=== PATIENT | female | born 1980 | race Caucasian/White ===

== ENCOUNTER → 2025-04-09 13:51 | Outpatient (CLI) | payer OTHER, SELFPAY ==
[2025-04-09 15:46] LABS: Lithium 0.5 mmol/L (0.6-1.2)
== END ==
LOC: LAB 13:54
PROVIDERS: PCP Family Medicine; Referring Provider Family Medicine; Visit Provider Family Medicine
DX: Z79.899 Other long term (current) drug therapy (principal); F31.81 Bipolar II disorder; F43.10 Post-traumatic stress disorder, unspecified; Z86.39 Personal history of other endocrine, nutritional and metabolic disease
CPT/HCPCS: 36415; 80178; 84443

== ENCOUNTER → 2025-04-10 15:11 | Outpatient (CLI) | payer OTHER, SELFPAY ==
--- NOTE | 2025-04-10 15:13 | DI.US.S_ITS ---
PROCEDURE: US ABDOMEN LIMITED INDICATIONS: ENLARGED LIVER ON CT. HISTORY OF CHRON'S. ABDOMEN PAIN. TECHNIQUE: Real-time scanning was performed of the abdominal and retroperitoneal organs, with image documentation. COMPARISON: None. FINDINGS: Liver: The liver measures 18.4 cm in vertical diameter. Diffusely increased echogenicity, with slightly heterogeneous echotexture. No focal lesions seen. Gallbladder: Status post cholecystectomy. Biliary ducts: Intrahepatic bile ducts are non-dilated. Extrahepatic bile duct caliber measures 6 mm. Normal is 6-7 mm or less in diameter, or 10 mm or less post-cholecystectomy. Pancreas: Visualized portions of the pancreas are sonographically normal. Miscellaneous: No free abdominal fluid. IMPRESSION: 1. Hepatomegaly with significant diffuse fatty infiltration. No focal lesions seen. 2. No significant biliary dilatation post cholecystectomy. Dictated by: Samuel Anglin M.D. on 04/10/2025 at 21:45 Approved by: Samuel Anglin M.D. on 04/10/2025 at 21:47
== END ==
LOC: US 15:13
PROVIDERS: PCP Family Medicine; Referring Provider Family Medicine; Visit Provider Family Medicine
DX: R16.0 Hepatomegaly, not elsewhere classified (principal); K76.0 Fatty (change of) liver, not elsewhere classified; K50.90 Crohn's disease, unspecified, without complications; R10.9 Unspecified abdominal pain; Z90.49 Acquired absence of other specified parts of digestive tract
CPT/HCPCS: 76705

== ENCOUNTER → 2025-08-18 12:44 | Outpatient (CLI) | payer OTHER, SELFPAY ==
[2025-08-18 13:49] LABS: Lithium 0.5 mmol/L (0.6-1.2)
[2025-08-18 14:22] LABS: TSH w/ Reflex to FT4 2.07 uIU/mL (0.47-4.68)
== END ==
PROVIDERS: PCP Family Medicine; Referring Provider Physician Assistant Medical; Visit Provider Physician Assistant Medical
DX: F31.81 Bipolar II disorder (principal); T43.595A Adverse effect of other antipsychotics and neuroleptics, initial encounter
CPT/HCPCS: 36415; 80178; 84443